=== PATIENT | male | born 1985 | race Caucasian/White ===

== ENCOUNTER 2022-02-19 21:30 | Emergency (ER) | payer MEDICAID, SELFPAY ==
[~2022-02-19] VITALS: Ht 175.3 cm; Wt 77.0 kg
[~2022-02-19 21:30] MED LIST: NOCURR
[2022-02-19 22:15] LABS: BASOPHILS % (AUTO) 0.4 % (0.0-2.0); EOSINOPHILS % (AUTO) 0.4 % (1.0-6.0); HEMATOCRIT 42.6 % (41-53); HEMOGLOBIN 14.4 g/dL (13.5-17.5); LYMPHOCYTES # (AUTO) 1.1 K/uL (1.0-4.8); LYMPHOCYTES % (AUTO) 17.1 % (22.0-44.0); MEAN CORPUSCULAR HEMOGLOBIN 31.2 pg (26.0-34.0); MEAN CORPUSCULAR HGB CONC 33.8 G/dL (31.0-37.0); MEAN CORPUSCULAR VOLUME 92 fL (80-100); MONOCYTES # (AUTO) 0.6 K/uL (0.1-1.0); MONOCYTES % (AUTO) 9.2 % (2.0-9.0); NEUTROPHILS # (AUTO) 4.9 K/uL (1.8-7.7); NEUTROPHILS % (AUTO) 72.9 % (40.0-70.0); PLATELET COUNT (AUTO) 198 K/uL (150-450); RED CELL DISTRIBUTION WIDTH 13.8 % (11.5-14.5)
[2022-02-19 22:30] LABS: LACTIC ACID 0.9 mmol/L (0.4-2.0)
[2022-02-19 22:34] LABS: ALANINE AMINOTRANSFERASE 45 U/L (12-78); ALBUMIN 3.8 g/dL (3.4-5.0); ALKALINE PHOSPHATASE 120 U/L (46-116); ANION GAP 4 mmol/L (8-16); ASPARTATE AMINOTRANSFERASE 20 U/L (15-37); BILIRUBIN,TOTAL 0.3 mg/dL (0.1-1.0); CALCIUM, TOTAL 9.3 mg/dL (8.8-10.5); CARBON DIOXIDE 31 mmol/L (22-29); CHLORIDE 104 mmol/L (98-107); CREATININE 1.05 mg/dL (0.60-1.30); GLOMERULAR FILTR. RATE CALC > 60 mL/min (>60); GLUCOSE,RANDOM 107 mg/dL (70-110); POTASSIUM 4.3 mmol/L (3.5-5.1); SODIUM SERUM 139 mmol/L (136-145); TOTAL PROTEIN, SERUM 7.1 g/dL (6.4-8.2); UREA NITROGEN, BLOOD 9 mg/dL (7-18)
[2022-02-19] MEDS ORDERED: ACETAMINOPHEN 500 MG TABLET PO ONE (23:00)
[2022-02-19] MEDS ORDERED: GuaiFENesin/D-METHORPHAN [SUGAR-FREE] 200-20MG/10 ML SYRUP UDCUP PO ONE (23:00)
[2022-02-19] MEDS ORDERED: DIPHENOXYLATE/ATROP 2.5-0.025 MG TABLET PO ONE (23:00)
[2022-02-19] MEDS ORDERED: KETOROLAC TROMETHAMINE 30 MG/ML VIAL IVP ONE (23:00)
[2022-02-19] MEDS ORDERED: SODIUM CHLORIDE 0.9% 1,000 ML IV ONE (23:00)
[2022-02-19 23:21] LABS: LIPASE 96 U/L (73-393)
[2022-02-19 23:26] LABS: COVID AG,FIA SOURCE NASOPHARYNGEAL
[2022-02-19 23:45] LABS: INFLUENZA TYPE A NEGATIVE FOR TYPE A (NEGATIVE); INFLUENZA TYPE B NEGATIVE FOR TYPE B (NEGATIVE)
[2022-02-20] MEDS ORDERED: ACET-2080 PO (00:10)
[2022-02-20] MEDS ORDERED: IBUP-1554 PO (00:10)
[2022-02-20] MEDS ORDERED: GUAIFDM PO (00:10)
[2022-02-20 00:44] VITALS: BP 120/77
== END 2022-02-20 00:55 | disposition home or self-care (01) ==
LOC: EMS 21:32
DX: U07.1 COVID-19 (principal); K52.9 Noninfective gastroenteritis and colitis, unspecified
CPT/HCPCS: 99284; 96374; 71045; 96361; 87426; 80053; 83605; 83690; 85025; 87804; 36415; J1885; J7030

== ENCOUNTER 2022-12-05 15:20 | Emergency (ER) | payer MEDICAID ==
[~2022-12-05] VITALS: Ht 167.6 cm; Wt 70.5 kg
[~2022-12-05 15:20] MED LIST changes: +ACET-2080 PO; +GUAIFDM PO; +IBUP-1554 PO; -NOCURR
[2022-12-05] MEDS ORDERED: PROPARACAINE HCL 0.5% 15 ML OPHTHALMIC SOLUTION OU ONE (15:45)
[2022-12-05] MEDS ORDERED: FLUORESCEIN SODIUM 1 MG STRIP OU ONE (15:45)
[2022-12-05] MEDS ORDERED: ERYT3.5O8 OS (17:22)
[2022-12-05 17:26] VITALS: BP 150/99
== END 2022-12-05 17:51 | disposition home or self-care (01) ==
LOC: EMS 15:23
DX: H11.32 Conjunctival hemorrhage, left eye (principal); Y04.8XXA Assault by other bodily force, initial encounter; Y93.89 Activity, other specified; Y92.89 Other specified places as the place of occurrence of the external cause; Y99.8 Other external cause status
CPT/HCPCS: 99283